=== PATIENT | female | born 1985 | race Caucasian/White ===

== ENCOUNTER 2017-02-10 11:02 | Emergency (ER) | END 2017-02-10 13:59 | disposition home or self-care (01) | DX: S49.91XA Unspecified injury of right shoulder and upper arm, initial encounter (principal); S29.9XXA Unspecified injury of thorax, initial encounter; W07.XXXA Fall from chair, initial encounter; Y92.9 Unspecified place or not applicable | CPT/HCPCS: 71010; 73030; Z7502 ==